=== PATIENT | male | born 1970 | race Caucasian/White ===

== ENCOUNTER 2018-09-26 17:18 | Emergency (ER) | payer MEDICAID ==
[~2018-09-26] VITALS: Ht 170.2 cm; Wt 77.0 kg
[2018-09-26 21:32] VITALS: BP 153/97
== END 2018-09-26 21:33 | disposition home or self-care (01) ==
LOC: ER 17:18
DX: R21 Rash and other nonspecific skin eruption (principal); G89.29 Other chronic pain; M54.89 Other dorsalgia; R03.0 Elevated blood-pressure reading, without diagnosis of hypertension
CPT/HCPCS: 99283

== ENCOUNTER 2018-09-26 21:59 | Emergency (ER) | payer MEDICAID ==
[~2018-09-26] VITALS: Ht 170.2 cm; Wt 78.0 kg
[2018-09-27] MEDS ORDERED: CYCLOBENZAPRINE 10MG TABLET PO ONE (06:30)
[2018-09-27] MEDS ORDERED: KETOROLAC 30MG/ML VIAL IV ONE (06:30)
[2018-09-27 07:14] VITALS: BP 121/88
== END 2018-09-27 07:16 | disposition home or self-care (01) ==
LOC: ER 21:59
DX: R21 Rash and other nonspecific skin eruption (principal); M54.5 Low back pain; F17.200 Nicotine dependence, unspecified, uncomplicated
CPT/HCPCS: 96374; 99283; J1885; Z7610

== ENCOUNTER 2018-11-11 05:08 | Emergency (ER) | payer MEDICAID ==
[~2018-11-11] VITALS: Ht 170.2 cm; Wt 78.0 kg
[2018-11-11 09:08] LABS: BASOPHILS % 0.8 % (0.0-2.0); EOSINOPHILS % 1.9 % (0.0-5.0); HEMATOCRIT. 43.2 % (42.0-52.0); HEMOGLOBIN. 14.5 g/dL (14.0-18.0); LYMPHOCYTES % 16.3 % (20.0-50.0); MEAN CORPUSCULAR HEMOGLOBIN 29.4 pg (28.0-32.0); MEAN CORPUSCULAR VOLUME 87.6 fL (80.0-94.0); MONOCYTES % 8.2 % (2.0-8.0); NEUTROPHILS % 72.8 % (40.0-76.0); PLATELET 153 x1000/uL (130-400); RED BLOOD CELL COUNT 4.94 mill/uL (4.7-6.1); RED CELL DISTRIBUTION WIDTH 14.4 % (11.6-14.6)
[2018-11-11 09:12] LABS: CHLORIDE 107 mEq/L (98-107)
[2018-11-11 09:17] LABS: ETHANOL BLOOD < 10 mg/dL
[2018-11-11 09:30] VITALS: BP 163/87
[2018-11-11] MEDS ORDERED: IBUPROFEN 600MG TABLET PO ONE (10:00)
[2018-11-11] MEDS ORDERED: DOXYCYCLINE HYCLATE 100MG CAPSULE PO ONE (10:00)
[2018-11-11 10:08] LABS: *BARBITURATES SCREEN URINE NEGATIVE (NEGATIVE)
[2018-11-11 10:09] LABS: *BENZODIAZEPINES SCREEN URINE NEGATIVE (NEGATIVE); *COCAINE SCREEN URINE NEGATIVE (NEGATIVE); METHADONE URINE SCREEN NEGATIVE (NEGATIVE)
[2018-11-11 10:10] LABS: CANNABINOID URINE SCREEN PRESUMTIVE POSITIVE (NEGATIVE); OPIATES URINE SCREEN NEGATIVE (NEGATIVE); PHENCYCLIDINE URINE SCREEN NEGATIVE (NEGATIVE)
[2018-11-11 10:12] LABS: *AMPHETAMINES SCREEN URINE NEGATIVE (NEGATIVE)
== END 2018-11-11 09:59 | disposition left against medical advice (07) ==
LOC: ER 05:08
DX: L02.811 Cutaneous abscess of head [any part, except face] (principal); F20.9 Schizophrenia, unspecified; F12.10 Cannabis abuse, uncomplicated; F41.9 Anxiety disorder, unspecified; F32.9 Major depressive disorder, single episode, unspecified; F17.200 Nicotine dependence, unspecified, uncomplicated
CPT/HCPCS: 36415; 80048; 80305; 80307; 80320; 80329; 99284; G0480